=== PATIENT | female | born 1965 ===

== ENCOUNTER 2017-11-25 11:48 | Day surgery (SDC) | payer OTHER ==
[2017-11-25 12:30] VITALS: RESP 18
[2017-11-25 12:41] VITALS: BMI 29.7
[2017-11-25] MEDS ORDERED: Lidocaine Hydrochloride 5 ML INJ ONE (13:22)
--- NOTE | 2017-11-25 13:48 | CP.SDSHP ---
Same Day Surgery H & P - History Proposed Procedure: US guided FNA of thyroid nodules Pre-Op Diagnosis: Thyroid nodules - Allergies Allergies: Allergies No Known Allergies Allergy (Verified 11/25/17 12:42) - Physical Exam Vital Signs: Vital Signs 11/25/17 11/25/17 11/25/17 12:29 12:33 13:25 Temperature 98.5 F 97.1 F L Pulse Rate 73 73 78 Respiratory 18 18 Rate Blood Pressure 123/71 118/74 O2 Sat by Pulse 97 Oximetry Mental Status: Alert & Oriented x3 - Impression Impression: Pt with several large right thyroid nodules. Plan US guided FNA of 3 cm right lower pole, 2 cm right upper pole, and 1. 4cm right mid pole calcified nodule. Pt. Evaluated Today:Candidate for Anesthesia & Procedure: No - Date & Time Date: 11/25/17 Time: 13:10 Short Stay Discharge - Short Stay Discharge Admitting Diagnosis/Reason for Visit: THYROID NODULES Disposition: HOME/ ROUTINE Referrals: Ana Owusu MD [Primary Care Provider] -
--- NOTE | 2017-11-25 13:50 | PCM.SURG1 ---
Surgeon's Initial Post Op Note - Surgeon's Notes Surgeon: Alen Figueroa MD [employer] Consultant: NONE Type of Anesthesia: Local Pre-Operative Diagnosis: THyroid nodules Operative Findings: US showed complex partially calcified right midpole 1.4 cm nodule. Also seen is a 3 cm solid lower pole and a 2 cm solid uppler pole nodule. Post-Operative Diagnosis: Thyroid nodules Operation Performed: US guided FNA. Five passes made into each nodule with a 25 g needle Specimen/Specimens Removed: 25 g FNA x 5 passes per nodule Estimated Blood Loss: EBL {In ML}: 1 Blood Products Given: N/A Drains Used: No Drains Post-Op Condition: Good Date of Surgery/Procedure: 11/25/17 Time of Surgery/Procedure: 13:45
--- NOTE | 2017-11-25 13:59 | VASCULAR ---
PROCEDURE: Date of Procedure: 11/25/2017 PROCEDURE: 1. Ultrasound guided FNA of right thyroid nodule, CPT 79636 2. Ultrasound guidance for FNA, 85051 Medications: 4cc 1% Lidocaine HISTORY: Enlarged right thyroid nodules. TECHNIQUE: Following informed consent and procedure time-out, a limited ultrasound patient's neck confirmed the presence of multiple enlarged complex thyroid nodules in the right thyroid gland. A large 3 centimeter solid nodule is present in the lower pole. A large 2 centimeter nodule is present in the upper pole. A partially calcified nodules present within the midpole measuring 1.4 centimeters. These nodules selected for fine aspiration. After the patient's neck was prepped and draped in the usual sterile fashion, the skin was anesthetized with 1% lidocaine. Ultrasound-guided fine needle aspiration was then performed of the lower pole nodule following the upper pole nodule followed by the midpole nodule. A total of 5 passes were made into each nodule with 25 gauge needle under ultrasound guidance. The FNA specimen was sent for routine pathology and genetics . Post biopsy ultrasound showed no hematoma. IMPRESSION: Ultrasound-guided FNA of the enlarged right lower pole nodule right upper pole nodule in the right mid pole nodule which is partially calcified as detailed above.
[2017-11-25 14:19] VITALS: BP 135/63; PULSE 68; TEMP 97.9; O2SAT 100
== END 2017-11-25 14:50 | disposition home or self-care (01) ==
LOC: H.OPSURG 11:48
PROVIDERS: ATTEND Family Medicine
DX: E04.1 Nontoxic single thyroid nodule (principal); E04.2 Nontoxic multinodular goiter